=== PATIENT | male | born 1965 | race Caucasian/White ===

== ENCOUNTER 2025-01-23 12:41 | Emergency (ER) | payer OTHER ==
[~2025-01-23] VITALS: Ht 177.8 cm; Wt 86.4 kg
[2025-01-23 12:48] VITALS: BP 160/97; PULSE 69; RESP 18; TEMP 97.2; O2SAT 97
--- NOTE | 2025-01-23 12:58 | Physician Documentation ---
History of Present Illness ~ Chief Complaint: Urinary Symptoms Stated Complaint: UNABLE TO URINATE ABD PAIN Time Seen by MD: 14:46 HPI Patient is seen today with complaints of acute urinary retention. Patient states over the last few years he has been having some slowing of his urinary stream but has never before experienced urinary retention. Patient states this morning he woke up and felt like the faucet turned off and he was unable to urinate more than a few drops. Patient states he has lower abdominal pressure and pain. Patient denies any fever or chills. He has no other concern or complaint at this time. Medication Reconciliation Allergies: Coded Allergies: No Known Allergies (Unverified , 01/23/25) Review of Systems Constitutional: Denies: chills, fever, weakness Eyes: Denies: pain, blurred vision ENT: Denies: ear pain, nose pain, throat pain, mouth pain Respiratory: Denies: cough, shortness of breath Cardiovascular: Denies: chest pain, palpitations Gastrointestinal: Denies: abdominal pain, nausea, vomiting Genitourinary: Denies: burning, dysuria Male Genitalia: Denies: penile discharge, testicular pain Neurological: Denies: headache, dizziness Musculoskeletal: Denies: pain, swelling Integumentary: Denies: rash, lesions Allergic/Immunologic: Denies: hives, itching Hematologic/Lymphatic: Denies: no symptoms reported Psychiatric: Denies: depression, anxiety Physical Exam Vital Signs: Temperature: 97.2, Source: Temporal, Heart Rate: 69, Respiratory Rate: 18, BP: 160/97, Pulse Oximetry: 97, Weight: 86.360 Oxygen Flow Rate: 0 Physical Exam General: Awake and Alert, no acute distress. HEENT: Conjunctiva pink, Sclera clear, Mucus Membranes moist. Neck: Supple without masses and tenderness. Resp: Unlabored. Lungs clear to auscultation bilaterally. Heart: Regular Rate and rhythm, normal S1 and S2 without murmur, rub or gallop. Abdomen: Abdomen is mildly distended in the suprapubic area and very tender to palpation. When palpating the upper abdomen patient feels pressure in his lower abdomen. There was no rebound tenderness, no guarding. Extremities: No cyanosis,clubbing or edema. Skin: Warm and Dry. Progress Results/Orders Results/Orders Orders - MINERVA TURNER PAC * Bladder Scan / Post Residual (01/23/25 15:09) Completed Orders - MINERVA TURNER Tamsulosin Capsule (Flomax Capsule) (01/23/25 16:28) Vital Signs 01/23/25 12:48 Temp 97.2 Pulse 69 Resp 18 B/P (MAP) 160/97 Pulse Ox 97 O2 Flow Rate 0 Laboratory Tests Test 01/23/25 13:03 01/23/25 13:10 Urine Specimen Description Cln catch midstream Urine Color Yellow Urine Clarity Clear Urine pH 6.0 Urine Specific [place] 1.025 Urine Protein Negative Urine Glucose (UA) 100 H Urine Ketones Negative Urine Occult Blood Negative Urine Nitrite Negative Urine Bilirubin Negative Urine Urobilinogen 0.2 Urine Leukocyte Esterase Negative Urine Culture Indicated Not ind Volume Urine Centrifuged 10 ml Urine Comment White Blood Count 11.6 H Red Blood Count 5.58 Hemoglobin 16.6 Hematocrit 49.6 Mean Corpuscular Volume 88.8 Mean Corpuscular Hemoglobin 29.7 Mean Corpuscular Hemoglobin Concent 33.4 Red Cell Distribution Width 14.0 Platelet Count 271 Mean Platelet Volume 9.4 Neutrophils (%) (Auto) 85.4 H Lymphocytes (%) (Auto) 8.3 L Monocytes (%) (Auto) 5.7 Eosinophils (%) (Auto) 0.1 Basophils (%) (Auto) 0.5 Neutrophils # (Auto) 9.9 H Lymphocytes # (Auto) 1.0 L Monocytes # (Auto) 0.7 Eosinophils # (Auto) 0.0 Basophils # (Auto) 0.1 CBC Comment Sodium Level 140 Potassium Level 3.9 Chloride Level 103 Carbon Dioxide Level 26.8 Anion Gap 10 Blood Urea Nitrogen 18 Creatinine 1.27 H Estimated GFR/1.73 m2 58 BUN/Creatinine Ratio 14.2 Glucose Level 133 H Calcium Level 9.1 Total Bilirubin 0.5 Aspartate Amino Transf (AST/SGOT) 20 Alanine Aminotransferase (ALT/SGPT) 34 Alkaline Phosphatase 101 Total Protein 8.3 H Albumin 4.4 Globulin 3.9 Albumin/Globulin Ratio 1.1 Lipase 22 Chemistry Comments Medical Decision Making Findings Patient is seen today with complaints of acute urinary retention. Patient states over the last few years he has been having some slowing of his urinary stream but has never before experienced urinary retention. Patient states this morning he woke up and felt like the faucet turned off and he was unable to urinate more than a few drops. Patient states he has lower abdominal pressure and pain. Patient denies any fever or chills. He has no other concern or complaint at this time. Patient did have bladder scan done by the nurse which did show over 800 mL of fluid. And this was just after patient tried to urinate and was unsuccessful. Patient did have straight catheterization performed and did have about 900 mL of fluid drained. Patient was given a dose of Flomax in the ED today and a prescription was sent to his pharmacy to be taken as directed. Patient will follow up with primary care for referral to Urology for further eval and treatment. Return to ED with any worsening, concerning or changing symptoms and definitely return for Purdy catheter if you were unable to have a bladder movement. Departure Disposition: HOME / SELF CARE / HOMELESS Impression: Primary Impression: Acute retention of urine Condition: Improved Discharge Instructions: Acute Urinary Retention, Male Additional Instructions: Patient did have bladder scan done by the nurse which did show over 800 mL of fluid. And this was just after patient tried to urinate and was unsuccessful. Patient did have straight catheterization performed and did have about 900 mL of fluid drained. Patient was given a dose of Flomax in the ED today and a prescription was sent to his pharmacy to be taken as directed. Patient will follow up with primary care for referral to Urology for further eval and ladonna atment. Return to ED with any worsening, concerning or changing symptoms and definitely return for Purdy catheter if you were unable to have a bladder movement. Referrals: NO PRIMARY CARE PROVIDER (PCP) Prescriptions Tamsulosin Hcl* (Flomax*) 0.4 Mg Cap.sr.24h 1-2 CAP PO DAILY for 30 Days, #60 CAP Prov: MINERVA TURNER PAC 01/23/25 Additional Comment Medical Screen Exam History: This is a 59-year-old male who presents with several hours of progressively worsening suprapubic abdominal pain along with difficulty urinating described as dribbling patient reports that the pain is beginning to spread into his right flank. Patient reports no fevers. Patient reports no history of prostate problems or kidney stones. Exam: VITALS: Reviewed and as above. GENERAL: Alert, nontoxic appearing, no apparent distress. RESPIRATORY: No increased work of breathing, no respiratory distress, speaking in full clear sentences Labs ordered. MSE performed in triage and patient returned to ED lobby by nursing staff to await an available ED room The note accurately reflects work and decisions made by me.PATRICIA Mason 01/23/25 12:58 Signature Scribe Signature: No scribe Attestation: No scribe LUIS CARLOS WALKER [facility] Jan 23, 2025 12:58 MINERVA TURNER [facility] Jan 23, 2025 16:33
[2025-01-23 13:31] LABS: BASOPHILS # (AUTO) 0.1 X10'3 (0-0.2); BASOPHILS % (AUTO) 0.5 % (0-1); EOSINOPHILS % (AUTO) 0.1 % (0-6); HEMATOCRIT 49.6 % (42.0-52.0); HEMOGLOBIN 16.6 g/dl (14.0-17.9); LYMPHOCYTES % (AUTO) 8.3 % (21-51); MEAN CORPUSCULAR HEMOGLOBIN 29.7 PG (27.0-31.0); MEAN CORPUSCULAR HGB CONC 33.4 g/dL (33.0-36.5); MEAN CORPUSCULAR VOLUME 88.8 FL (78-98); MEAN PLATELET VOLUME 9.4 FL (7.4-10.4); MONOCYTES # (AUTO) 0.7 X10'3 (0-0.9); MONOCYTES % (AUTO) 5.7 % (2-12); NEUTROPHILS # (AUTO) 9.9 X10'3 (1.8-7.7); NEUTROPHILS % (AUTO) 85.4 % (42-75); PLATELET COUNT 271 X10'3 (140-440); RED BLOOD COUNT 5.58 X10'6 (4.70-6.10); WHITE BLOOD COUNT 11.6 X10'3 (4.5-11.0)
[2025-01-23 13:37] LABS: BILIRUBIN,URINE NEGATIVE (Neg); CLARITY,URINE CLEAR (Clear); COLOR,URINE YELLOW (Yellow); GLUCOSE, URINE 100 mg/dl (Neg); KETONES,URINE NEGATIVE (Neg); LEUKOCYTE ESTERASE ,URINE NEGATIVE (Neg); NITRITES, URINE NEGATIVE (Neg); OCCULT BLOOD,URINE NEGATIVE (Neg); PROTEIN,URINE NEGATIVE (Neg); UROBILINOGEN,URINE 0.2 E.U/dL (0.2-1.0)
[2025-01-23 13:40] LABS: UA COLLECTION TYPE CLN CATCH MIDSTREAM
[2025-01-23 13:41] LABS: ALANINE AMINOTRANSFERASE 34 U/L (12-78); ALBUMIN 4.4 G/DL (3.4-5.0); ALBUMIN/GLOBULIN RATIO 1.1 (1.1-1.5); ALKALINE PHOSPHATASE 101 IU/L (46-116); ANION GAP 10 (8-16); ASPARTATE AMINO TRANSFERASE 20 U/L (10-37); BILIRUBIN,TOTAL 0.5 MG/DL (0.1-1.0); BLOOD UREA NITROGEN 18 MG/DL (7-18); BUN/CREATININE RATIO 14.2 (10.0-20.0); CALCIUM 9.1 MG/DL (8.5-10.1); CHLORIDE 103 MMOL/L (99-107); CREATININE 1.27 MG/DL (0.60-1.10); GLUCOSE 133 MG/DL (70-104); LIPASE 22 U/L (16-77); POTASSIUM 3.9 MMOL/L (3.5-5.1); SODIUM 140 MMOL/L (135-145); TOTAL CARBON DIOXIDE 26.8 MMOL/L (24-32); TOTAL PROTEIN 8.3 G/DL (6.4-8.2); eCRCL 66 ML/MIN; eGFR 58 ML/MIN
[2025-01-23] MEDS: tamsulosin 0.4mg capsule PO STA (16:46)
[2025-01-23] MEDS ORDERED: TAMS-55 PO (16:46)
== END 2025-01-23 17:01 | disposition home or self-care (01) ==
LOC: ER 12:42
DX: R33.9 Retention of urine, unspecified (principal)
CPT/HCPCS: 36415; 51701; 51798; 80053; 81003; 83690; 85025; 99284; C1758